=== PATIENT | female | born 1970 | race American Indian/Alaskan Native ===

== ENCOUNTER 2016-12-24 14:00 | Inpatient (IN) | payer BC ==
[2016-12-24 14:07] VITALS: BMI 32.6
[2016-12-24 15:38] LABS: BASO # 0.1 K/uL (0.0-0.2); EOS # 0.1 K/uL (0.0-0.7); HEMATOCRIT 41.7 % (34.0-47.0); LYMPH # 3.5 K/uL (1.0-4.3); LYMPH % 46.5 % (20.0-40.0); MEAN CELL VOLUME 86.9 fL (81.0-99.0); MEAN CORPUSCULAR HEMOGLOBIN 28.6 pg (27.0-31.0); MEAN CORPUSCULAR HGB CONC 32.9 g/dL (33.0-37.0); MEAN PLATELET VOLUME 8.3 fL (7.2-11.7); MONO # 0.6 K/uL (0.0-0.8); MONO % 7.7 % (0.0-10.0); NRBC % 0.1 % (0.0-2.0); RED CELL DISTRIBUTION WIDTH 14.8 % (11.5-14.5); WHITE BLOOD COUNT 7.6 K/uL (4.8-10.8)
[2016-12-24 15:45] LABS: CHLORIDE 102 mmol/L (98-107)
[2016-12-24 15:46] LABS: INR 1.2; POTASSIUM 3.3 mmol/L (3.6-5.2); SODIUM 138 mmol/L (132-148)
[2016-12-24 15:47] LABS: URINE BILIRUBIN NEGATIVE (NEGATIVE); URINE BLOOD NEGATIVE (NEGATIVE); URINE COLOR Straw (YELLOW); URINE GLUCOSE (UA) NORMAL (Normal); URINE KETONE NEGATIVE (NEGATIVE); URINE LEUKOCYTE ESTERASE NEG Leu/uL (Negative); URINE PROTEIN NEGATIVE (NEGATIVE); URINE UROBILINOGEN NORMAL mg/dL (0.2-1.0); WBC URINE < 1 /hpf (0-5)
[2016-12-24 15:48] LABS: ALB/GLOB RATIO 0.9 (1.0-2.1); AST/SGOT 17 U/L (14-36); BILIRUBIN,TOTAL 0.4 mg/dL (0.2-1.3); BLOOD UREA NITROGEN 11 mg/dL (7-17); CARBON DIOXIDE 25 mmol/L (22-30); GFR AFRICAN-AMERICAN > 60; TOTAL PROTEIN 9.2 g/dL (6.3-8.3)
[2016-12-24 15:49] LABS: ALKALINE PHOSPHATASE 54 U/L (38-126); ALT/SGPT 39 U/L (9-52); CALCIUM 9.1 mg/dl (8.6-10.4); GLUCOSE,RANDOM 92 mg/dL (65-105)
--- NOTE | 2016-12-24 16:35 | C.PDOC ---
History Of Present Illness 46 year old female, with no significant past medical history, presents to the ED as a referral by her PMD, Dr. Watson, with complaints of intermittent dizziness, neck pain, and headache. Dr. Watson is requesting an MRI. She notes complaints are exacerbated by movement. Patient states symptoms began 8 days prior with associated nausea and vomiting. She reports she was seen by her PMD 7 days ago and given steroids for an "ear problem." Patient was compliant with medication with no relief of symptoms. She notes she [place] [facility] [place] and had a full work up performed including EKG, CT scan, and blood work. CT scan results were negative. Patient denies tingling, numbness, recent travel, sick contacts, extremity swelling, chest pain, or chest pain. Time Seen by Provider: 12/24/16 14:28 Chief Complaint (Nursing): Dizziness/Lightheaded History Per: Patient History/Exam Limitations: no limitations Onset/Duration Of Symptoms: Days (8 days ) Current Symptoms Are (Timing): Still Present Seizure Or Post-ictal Symptoms: None Fall Associated With With Symptoms: No Recent travel outside of the [place]: No Past Medical History Reviewed: Historical Data, Nursing Documentation, Vital Signs Vital Signs: Last Vital Signs Temp 98.4 F 12/24/16 14:08 Pulse 114 H 12/24/16 14:08 Resp 18 12/24/16 14:08 BP 147/105 H 12/24/16 14:08 Pulse Ox 97 12/24/16 16:51 Surgical History: No Surg Hx Family History: States: Unknown Family Hx - Social History Hx Alcohol Use: No Hx Substance Use: No - Immunization History Hx Tetanus Toxoid Vaccination: No Hx Influenza Vaccination: No Hx Pneumococcal Vaccination: No Review Of Systems Except As Marked, All Systems Reviewed And Found Negative. Constitutional: Negative for: Fever, Chills Cardiovascular: Negative for: Chest Pain Respiratory: Negative for: Shortness of Breath Gastrointestinal: Negative for: Nausea, Vomiting, Abdominal Pain, Diarrhea Genitourinary: Negative for: Dysuria Musculoskeletal: Positive for: Neck Pain. Negative for: Back Pain Neurological: Positive for: Headache, Dizziness. Negative for: Weakness, Numbness Physical Exam - Physical Exam Appears: Non-toxic, No Acute Distress Skin: Warm, Dry, No Rash Head: Atraumatic, Normacephalic, No Tenderness, No Swelling, No Abrasion, No Laceration Eye(s): bilateral: Normal Inspection, PERRL, EOMI Ear(s): Bilateral: Normal Nose: Normal, No Discharge Oral Mucosa: Moist Throat: No Erythema, No Exudate Neck: Normal ROM, No Midline Cervical Tenderness, No Paracervical Tenderness, No Step Off Deformity, Supple Chest: Symmetrical, No Deformity Cardiovascular: Rhythm Regular, No Friction Rub, No Murmur Respiratory: Normal Breath Sounds, No Rales, No Rhonchi, No Wheezing, Other ( clear to auscultation bilaterally ) Gastrointestinal/Abdominal: Soft, No Tenderness, No Distention, No Guarding, No Rebound Back: Normal Inspection, No CVA Tenderness Extremity: Normal ROM, No Tenderness, No Pedal Edema, No Calf Tenderness, Capillary Refill (good capillary refill, less than two seconds ), No Deformity, No Swelling Neurological/Psych: Oriented x3, Normal Speech, Normal Cognition, Normal Cranial Nerves, No Cerebellar Signs, Normal Motor, Normal Sensation ED Course And Treatment - Laboratory Results Result Diagrams: 12/24/16 15:34 12/24/16 15:34 O2 Sat by Pulse Oximetry: 97 (RA) Pulse Ox Interpretation: Normal Progress Note: The case was discussed with Dr. Watson who states to place the patient in OBS and requests a neuro consult. Medical Decision Making Medical Decision Making: On re-exam, the patient still has dizziness, and with unsteady gait. Disposition - Disposition Disposition: HOSPITALIZED Disposition Time: 16:30 Condition: FAIR - POA Present On Arrival: None - Clinical Impression Clinical Impression: Dizziness - PA / [employer] AIDE / Resident Statement MD/DO has reviewed & agrees with the documentation as recorded. - Scribe Statement The provider has reviewed the documentation as recorded by the Scribe Lakesha Newby All medical record entries made by the Anai were at my direction and personally dictated by me. I have reviewed the chart and agree that the record accurately reflects my personal performance of the history, physical exam, medical decision making, and the department course for this patient. I have also personally directed, reviewed, and agree with the discharge instructions and disposition.
[2016-12-24] MEDS ORDERED: DiphenhydrAMINE 50 mg/ml Inj IVP STA (16:45)
[2016-12-24] MEDS ORDERED: Sodium Chloride 0.9% 500 ML IV ONE (16:48)
[2016-12-24] MEDS ORDERED: Sodium Chloride 0.9% 1,000 ML ONE (17:17)
[2016-12-24] MEDS ORDERED: DiphenhydrAMINE 50 mg/ml Inj ONE (17:17)
--- NOTE | 2016-12-24 17:56 | MRI ---
PROCEDURE: MRI BRAIN WITHOUT CONTRAST HISTORY: dizziness x8 days COMPARISON: None. TECHNIQUE: Multiplanar, multisequence MR images of the brain were obtained without intravenous contrast enhancement. FINDINGS: HEMORRHAGE: None DWI: No evidence of an acute or early subacute infarction. BRAIN PARENCHYMA: There are a few punctate long TR hyperintensities identified primarily in the subcortical white matter of the bilateral frontal lobes and minimally related to the right frontal periventricular white matter as well. The corpus callosum appears spared throughout as well as the remaining white matter anatomy overall. Good corticomedullary differentiation is appreciated and no cortical edema is identified above or below the tentorium. Signal throughout the brainstem is normal. There is no mass effect or suspicious extra-axial fluid collection identified in the craniocervical junction appears intact. VENTRICLES: Unremarkable. No hydrocephalus. CRANIUM: Unremarkable. ORBITS: Grossly unremarkable. PARANASAL SINUSES/MASTOIDS: Clear VASCULAR SYSTEM: Skull base flow voids intact. OTHER FINDINGS: None. IMPRESSION: There a few punctate long TR hyperintensities identified in the bilateral frontal lobes which are nonspecific and of uncertain origin. No acute brain infarction or intracranial hemorrhage is identified this time. The white-matter findings are minimal and may reflect various etiologies such is hypertension or headaches with vasculitis and demyelination as well as others. Further clinical correlation is advised. Contrast MRI can be utilized for additional characterization which is recommended. Examination otherwise appears unremarkable.
[2016-12-24] MEDS ORDERED: Dexamethasone 4 mg/1 ml IV STA (19:42)
[2016-12-24] MEDS ORDERED: Valproate 500 MG in Sodium Chloride 0.9% 100 ML IVPB ONE (19:45)
[2016-12-24] MEDS ORDERED: Magnesium Sulfate 1 gm in D5W 2 GM/200 ML BAG IVPB ONE (19:58)
[2016-12-24] MEDS: Magnesium Sulfate 1 gm in D5W 1 GM/100 ML BAG IVPB SCH ×2 (20:10→20:43)
[2016-12-25 05:41] VITALS: RESP 20
[2016-12-25 07:47] LABS: THYROID STIMULATING HORMONE 0.33 mIU/L (0.46-4.68)
[2016-12-25 08:11] VITALS: O2SAT 96
[2016-12-25] MEDS ORDERED: Pneumococcal 23-Valent Vaccine IM ONE (10:00)
[2016-12-25] MEDS ORDERED: Influenza Vaccine 60 mcg/0.5 mL SYR (4YR UP) IM ONE (10:00)
--- NOTE | 2016-12-25 13:39 | CARD ---
APPROVED REPORT EKG Measurement Heart [id number] <Conclusion> Normal sinus rhythm Normal ECG
--- NOTE | 2016-12-25 14:35 | CP.PCM.CON ---
History of Present Illness - History of Present Illness History of Present Illness: Mrs. Jung is a 46-year-old woman with a past medical history of hypertension , who states that she has had a severe headache that started with vertigo, nausea and vomiting about one week ago. This culminated yesterday in a severe headache and she presented to the ED. An MRI of the brain was done and showed 2 -3 white matter hyperintensities consistent with underlying migraine headaches. She was treated with decadron 10 mg IV, depakote 500 mg IV and magnesium sulfate 2 grams IV. She felt that her vertigo improved quickly, and her headache is basically gone today. Review of Systems - Review of Systems All systems: reviewed and no additional remarkable complaints except Past Patient History - Past Medical History & Family History Past Medical History?: Yes - Past Social History Smoking Status: Never Smoked - CARDIAC Hx Cardiac Disorders: No - PULMONARY Hx Respiratory Disorders: No - NEUROLOGICAL Hx Neurological Disorder: Yes Hx Dizziness: Yes Other/Comment: Headache - HEENT Hx HEENT Problems: No - RENAL Hx Chronic Kidney Disease: No - ENDOCRINE/METABOLIC Hx Endocrine Disorders: No - HEMATOLOGICAL/ONCOLOGICAL Hx Blood Disorders: No - INTEGUMENTARY Hx Dermatological Problems: No - MUSCULOSKELETAL/RHEUMATOLOGICAL Hx Musculoskeletal Disorders: No Hx Falls: No - GASTROINTESTINAL Hx Gastrointestinal Disorders: No - GENITOURINARY/GYNECOLOGICAL Hx Genitourinary Disorders: No - PSYCHIATRIC Hx Psychophysiologic Disorder: No Hx Substance Use: No - SURGICAL HISTORY Hx Surgeries: Yes Hx Tubal Ligation: Yes Other/Comment: sinus surgery - ANESTHESIA Hx Anesthesia: Yes Hx Anesthesia Reactions: No Hx Malignant Hyperthermia: No Has any member of the family had a problem w/ anesthesia?: No Meds Allergies/Adverse Reactions: Allergies Allergy/AdvReac Type Severity Reaction Status Date / Time No Known Allergies Allergy Verified 12/24/16 14:06 - Medications Medications: Current Medications Bisoprolol Fumarate (Zebeta) 2.5 mg PO DAILY MACARIO Last Admin: 12/25/16 09:44 Dose: 2.5 mg Physical Exam - Constitutional Appears: Well - Head Exam Head Exam: ATRAUMATIC, NORMAL INSPECTION, NORMOCEPHALIC - Eye Exam Eye Exam: EOMI, Normal appearance, PERRL - ENT Exam ENT Exam: Mucous Membranes Moist, Normal Exam - Neck Exam Neck exam: Positive for: Normal Inspection - Respiratory Exam Respiratory Exam: Clear to Auscultation Bilateral, NORMAL BREATHING PATTERN - Cardiovascular Exam Cardiovascular Exam: Bradycardia, +S1, +S2 - GI/Abdominal Exam GI & Abdominal Exam: Normal Bowel Sounds, Soft. absent: Tenderness - Rectal Exam Rectal Exam: Deferred - Extremities Exam Extremities exam: Positive for: normal inspection - Back Exam Back exam: NORMAL INSPECTION - Neurological Exam Neurological exam: Alert, CN II-XII Intact, Normal Gait, Oriented x3, Reflexes Normal - Psychiatric Exam Psychiatric exam: Normal Affect, Normal Mood - Skin Skin Exam: Dry, Intact, Normal Color, Warm Results - Vital Signs Recent Vital Signs: Last Vital Signs Temp 98.0 F 12/25/16 07:05 Pulse 69 12/25/16 07:05 Resp 20 12/25/16 07:05 BP 115/78 12/25/16 07:05 Pulse Ox 96 12/25/16 07:05 - Labs Result Diagrams: 12/24/16 15:34 12/24/16 15:34 Labs: Laboratory Results - last 24 hr 12/24/16 12/24/16 12/24/16 15:34 15:34 15:34 WBC 7.6 RBC 4.80 Hgb 13.7 Hct 41.7 MCV 86.9 MCH 28.6 MCHC 32.9 L RDW 14.8 H Plt Count 383 MPV 8.3 Neut % (Auto) 43.8 L Lymph % (Auto) 46.5 H [place] % (Auto) 7.7 Eos % (Auto) 1.0 Baso % (Auto) 1.0 Neut # 3.3 Lymph # 3.5 [place] # 0.6 Eos # 0.1 Baso # 0.1 PT 13.4 H INR 1.2 APTT 33 Sodium Potassium Chloride Carbon Dioxide Anion Gap BUN Creatinine Est GFR ( Amer) Est GFR (Non-Af Amer) Random Glucose Calcium Total Bilirubin AST ALT Alkaline Phosphatase Troponin I Total Protein Albumin Globulin Albumin/Globulin Ratio Triglycerides Cholesterol LDL Cholesterol Direct HDL Cholesterol TSH 3rd Generation Urine Color Straw Urine Clarity Clear Urine pH 5.0 Ur Specific [place] 1.010 Urine Protein Negative Urine Glucose (UA) Normal Urine Ketones Negative Urine Blood Negative Urine Nitrate Negative Urine Bilirubin Negative Urine Urobilinogen Normal Ur Leukocyte Esterase Neg Urine WBC (Auto) < 1 Ur Squamous Epith Cells < 1 Urine HCG, Qual Negative 12/24/16 12/25/16 12/25/16 15:34 06:29 10:36 WBC RBC Hgb Hct MCV MCH MCHC RDW Plt Count MPV Neut % (Auto) Lymph % (Auto) [place] % (Auto) Eos % (Auto) Baso % (Auto) Neut # Lymph # [place] # Eos # Baso # PT INR APTT Sodium 138 Potassium 3.3 L Chloride 102 Carbon Dioxide 25 Anion Gap 14 BUN 11 Creatinine 0.8 Est GFR ( Amer) > 60 Est GFR (Non-Af Amer) > 60 Random Glucose 92 Calcium 9.1 Total Bilirubin 0.4 AST 17 ALT 39 Alkaline Phosphatase 54 Troponin I < 0.0120 Total Protein 9.2 H Albumin 4.3 Globulin 4.9 H Albumin/Globulin Ratio 0.9 L Triglycerides 59 Cholesterol 249 H LDL Cholesterol Direct 190 H HDL Cholesterol 58 TSH 3rd Generation 0.33 L Urine Color Urine Clarity Urine pH Ur Specific [place] Urine Protein Urine Glucose (UA) Urine Ketones Urine Blood Urine Nitrate Urine Bilirubin Urine Urobilinogen Ur Leukocyte Esterase Urine WBC (Auto) Ur Squamous Epith Cells Urine HCG, Qual Negative Assessment & Plan (1) Vestibular migraine Assessment and Plan: The symptoms have resolved with treatment, but there is still concern that the patient may have vertebro-basilar insufficiency. I would like to rule this out with a CTA of the head/neck. If normal, the patient can be discharged home on magnesium oxide 400 mg BID and may follow-up with outpatient neurology. Thank you. Status: Acute Priority: High
[2016-12-25] MEDS ORDERED: Iodixanol 320 MG/ML 100 ML BOTTLE IV ONE (14:40)
[2016-12-25 15:23] VITALS: BP 113/74; TEMP 98.2
--- NOTE | 2016-12-25 15:31 | CT ---
PROCEDURE: CT Angiography of the Brain. HISTORY: Headache COMPARISON: None available. TECHNIQUE: CT angiography of the intracranial arteries was performed. Coronal and sagittal maximum intensity projection reformated images were generated. This CT exam was performed using one or more of the following dose reduction techniques: Automated exposure control, adjustment of the mA and/or kV according to patient size, and/or use of iterative reconstruction technique. FINDINGS: INTERNAL CEREBRAL ARTERIES: Unremarkable. The skull base, petrous, cavernous and supraclinoid segments are bilaterally widely patent. ANTERIOR CEREBRAL ARTERIES: Unremarkable. A1 and A2 segments are widely patent. Smaller distal branches unremarkable, as visualized. MIDDLE CEREBRAL ARTERIES: Unremarkable. M1 and M2 segments are widely patent. Perisylvian branches grossly symmetric. POSTERIOR CIRCULATION: Basilar Artery: Unremarkable. Distal Vertebral Arteries: Unremarkable. Posterior Cerebral Arteries: Unremarkable. Posterior Inferior Cerebellar Arteries: Unremarkable. NECK CTA RESULTS: Common carotid arteries: The bilateral common carotid appear widely patent from their origins to their bifurcations with no significant stenosis appreciated. No evidence to suggest common carotid artery dissection. Internal carotid arteries: No significant stenosis is appreciated throughout the cervical internal carotid artery segments bilaterally and there is no evidence of dissection either. Vertebral arteries: The bilateral vertebral arteries appear normal in caliber from their origins to their junction with the basilar artery. Vertebrobasilar system exhibits no definite vertebral dominance. No significant stenosis or definite pattern of dissection. Incidentally, the bilateral subclavian arteries are widely patent as well as the brachiocephalic artery. ANEURYSM/ VASCULAR MALFORMATIONS: None. OTHER FINDINGS: None. IMPRESSION: Unremarkable CT Angiography of the Brain and Neck.
[2016-12-25 16:15] VITALS: PULSE 93
[2016-12-25] MEDS ORDERED: Potassium Chloride 20 mEq ER Tab PO SCH (17:15)
[2016-12-25] MEDS ORDERED: Potassium Chloride 20 mEq ER Tab PO STA (17:48)
--- NOTE | 2016-12-25 17:48 | CP.PCM.PN ---
Subjective - Date & Time of Evaluation Date of Evaluation: 12/25/16 Time of Evaluation: 17:42 - Subjective Subjective: PATIENT SEEN AND EXAMINED AT THE BEDSIDE AAO X 3 DENIES ANY NECK OR HEADACHE. Objective - Vital Signs/Intake and Output Vital Signs (last 24 hours): Temp Pulse Resp BP Pulse Ox 98.2 F 93 H 20 113/74 96 12/25/16 15:21 12/25/16 16:09 12/25/16 15:21 12/25/16 15:21 12/25/16 15:21 Intake and Output: 12/25/16 12/25/16 06:59 18:59 Intake Total 100 350 Balance 100 350 - Medications Medications: Current Medications Bisoprolol Fumarate (Zebeta) 2.5 mg PO DAILY MACARIO Last Admin: 12/25/16 09:44 Dose: 2.5 mg Potassium Chloride (K-Dur 20 Meq Er Tab) 40 meq PO DAILY MACARIO - Labs Labs: 12/24/16 15:34 12/24/16 15:34 PT 13.4 SECONDS (9.7-12.2) H 12/24/16 15:34 INR 1.2 12/24/16 15:34 APTT 33 SECONDS (21-34) 12/24/16 15:34 Assessment and Plan - Assessment and Plan (Free Text) Plan: DISCUSS DISCHARGE PLAN WITH DR PYLE --AGREED AND CLEARED PATIENT FOR DC DR RENAE CLEARED PATIENT FOR DC CTA OF HEAD /NECK IS NEGATIVE ABNORMAL LABS (CHOLESTEROL AND TSH ) ADDRESS WITH AND PATIENT STATES "I WILL FOLLOW WITH MY DOCTORS AND I DO NOT WANT TO START MEDS" ADVICE PATIENT TO DO EXERCISE TOLERATE AND FOLLOW UP WITH DR PYLE IN 1 WEEK PATIENT VERBALIZE AND AGREE WITH THE DISCHARGE PLANING
--- NOTE | 2016-12-26 10:44 | DS ---
REASON FOR ADMISSION: This is a 46-year-old female with history of hypertension who was admitted for headache and dizziness. COURSE OF HOSPITALIZATION: The patient was admitted through emergency room and she had MRI that showed bilateral frontal lobe hyperintense small punctuate area that was suggestive for headache. The patient had a Neurology consultation done by Dr. Rodríguez and she was treated with magnesium, Depakote as well as Decadron. The patient's symptoms remarkably improved and she also had a CT angiogram of the head and neck that was unremarkable. The patient was discharged home on magnesium 400 mg twice a day and to follow up with Neurology and her primary care physician. ASSESSMENT: 1. Complicated migraine headache. 2. Hypertension. 3. Hypercholesterolemia. [facility] MD Walter
--- NOTE | 2016-12-26 10:54 | HP ---
HISTORY OF PRESENT ILLNESS: This is a 46-year-old female with history of hypertension and hypercholesterolemia, presented with, for the third time during 10 days prior to this admission, with headache and dizziness of about 10 days duration. Patient was given p.o. steroid as well as azithromycin. Patient visited emergency room of [facility] ([facility] where she had a CAT scan of the head that was unremarkable and also patient was given Zofran p.r.n. for nausea. Again for the third time, patient presented to my office after she failed outpatient treatment. The patient was referred to emergency room for evaluation. The patient had an MRI as part of her evaluation in emergency room and MRI showed a few punctuate lung TR hyperintensities identified in the bilateral frontal lobes, which are nonspecific and also uncertain origin. No acute brain infarction or intracranial hemorrhage is identified. The white matter findings are minimal and may reflect various etiologies such as hypertension or headache with vasculitis and with demyelination as well as others. The patient was admitted for further management. Patient also had Neurology consultation by Dr. Rodríguez. REVIEW OF SYSTEMS: Other review of system is negative. ALLERGIES: NO KNOWN ALLERGY. MEDICATIONS: Include bisoprolol/hydrochlorothiazide. PAST MEDICAL HISTORY: Hypertension, hypercholesterolemia. SOCIAL HISTORY: No history of smoking, EtOH or substance abuse. FAMILY HISTORY: Noncontributory. PHYSICAL EXAMINATION GENERAL: The patient is in bed, not in any cardiopulmonary distress at the time of this examination. VITAL SIGNS: Blood pressure 115/78, temperature 98.0, respiratory rate 20 and pulse 69. HEENT: Pupils equal, reactive to light. Normal-appearing mucosa of the conjunctivae, oropharyngeal, and nasal membrane mucosa. NECK: Supple. No JVD. No carotid bruit. No lymph node. No thyromegaly. CHEST AND LUNGS: Bilateral symmetrical expansion. Good air exchange. No rales, no rhonchi. CARDIOVASCULAR SYSTEM: PMI not localized. S1,S2. No additional sounds. ABDOMEN: Normoactive bowel sounds. No tenderness. No organomegaly. No masses. EXTREMITIES: No cyanosis, no clubbing, no edema. OIL RIG ROUGHNECK: Alert, awake, oriented x3. No neurological deficit could be appreciated. ASSESSMENT: 1. Possible complicated migraine headache with nausea and dizziness. 2. Hypertension. 3. Hypercholesterolemia. PLAN: Discussed patient condition with Dr. Rodríguez who suggested to start patient on magnesium in addition to her antihypertensive medications and also to do a CT angiogram of the head and neck. Kimberly MD Walter
== END 2016-12-25 18:25 | disposition home or self-care (01) | DRG 103 ==
LOC: C.ER 14:00 → C.9E 17:00 → C.3T 19:24 → C.9E 19:29 → OBSVTOIN 19:29 → C.9E 19:30 → C.6T 20:15
PROVIDERS: ADMIT Internal Medicine; ATTEND Internal Medicine
DX: G43.109 Migraine with aura, not intractable, without status migrainosus (principal); R42 Dizziness and giddiness; R11.0 Nausea; I10 Essential (primary) hypertension; E78.00 Pure hypercholesterolemia, unspecified; Z98.51 Tubal ligation status